=== PATIENT | male | born 1955 | race Caucasian/White ===

== ENCOUNTER → 2018-08-03 | Outpatient (CLI) | payer OTHER ==
[2018-08-03 10:06] LABS: ALANINE AMINOTRANSFERASE 36 U/L (12-78); ALBUMIN 4.1 g/dL (3.4-5.0); ANION GAP 3 mmol/L (5-15); CALCIUM 8.9 mg/dL (8.5-10.1); CHLORIDE 106 mmol/L (98-107)
[2018-08-03 10:09] LABS: ALKALINE PHOSPHATASE 45 U/L (45-117); BILIRUBIN,TOTAL 0.6 mg/dL (0.2-1.0); CHOL/HDL RATIO 2.9; CHOLESTEROL, TOTAL 146 mg/dL (140-239); CREATININE 0.96 mg/dL (0.7-1.3); HDL CHOL % 35 % (26-37); HDL CHOLESTEROL (DIRECT) 51 mg/dL (40-60); LDL CHOLESTEROL,CALCULATED 86 mg/dL (54-169); LDL/HDL RATIO 1.7 (0.5-3.0); TOTAL PROTEIN 6.6 g/dL (6.4-8.2); TRIGLYCERIDES 47 mg/dL (50-200); VLDL CHOLESTEROL 9 mg/dL (0-25)
[2018-08-03 10:18] LABS: HEMOGLOBIN A1C 5.4 % (4.2-6.3)
[2018-08-03 10:29] LABS: BASOPHILS # (AUTO) 0.01 x10^3/uL (0-0.1); BASOPHILS % (AUTO) 0 % (0-1); EOSINOPHILS # (AUTO) 0.04 x10^3/uL (0-0.4); EOSINOPHILS % (AUTO) 1 % (1-7); LYMPHOCYTES # (AUTO) 0.66 x10^3/uL (1-3.4); LYMPHOCYTES % (AUTO) 14 % (22-44); MD SCAN; MEAN CORPUSCULAR HEMOGLOBIN 30.2 pg (27.5-34.5); MEAN CORPUSCULAR HGB CONC 33.5 g/dL (33.2-36.2); MEAN CORPUSCULAR VOLUME 90.1 fL (81-97); MEAN PLATELET VOLUME 10.1 fL (7.4-10.4); MONOCYTES # (AUTO) 0.42 x10^3/uL (0.2-0.8); MONOCYTES % (AUTO) 9 % (2-9); NEUTROPHILS # (AUTO) 3.59 x10^3/uL (1.8-6.8); NEUTROPHILS % (AUTO) 76 % (42-75); PLATELET COUNT 77 x10^3/uL (130-400); RED BLOOD COUNT 5.34 x10^6/uL (4.38-5.82); RED CELL DISTRIBUTION WIDTH 12.8 % (9.4-14.8)
== END | disposition home or self-care (01) ==
LOC: LAB 09:44
PROVIDERS: ATTEND Family Medicine
DX: Z13.1 Encounter for screening for diabetes mellitus (principal); Z13.220 Encounter for screening for lipoid disorders; D69.6 Thrombocytopenia, unspecified
CPT/HCPCS: 36415; 80053; 80061; 83036; 85025

== ENCOUNTER → 2019-09-17 | Outpatient (CLI) | payer OTHER ==
[~2019-09-17] MED LIST: OMNIPAQUE 350 MG/ML, 150 ML BOTTLE ONE
== END | disposition home or self-care (01) ==
LOC: CFH 14:52
PROVIDERS: ATTEND Family Medicine
DX: M50.322 Other cervical disc degeneration at C5-C6 level (principal); R59.1 Generalized enlarged lymph nodes; R16.1 Splenomegaly, not elsewhere classified
CPT/HCPCS: 70491; 71260; 82565; Q9967

== ENCOUNTER 2019-10-10 07:35 | Outpatient (CLI) | payer OTHER | END 2019-10-10 23:59 | disposition home or self-care (01) | LOC: CVU 07:35 → PETCFH 23:59 | PROVIDERS: ATTEND Internal Medicine Hematology & Oncology | DX: C81.94 Hodgkin lymphoma, unspecified, lymph nodes of axilla and upper limb (principal); I08.8 Other rheumatic multiple valve diseases; K57.30 Diverticulosis of large intestine without perforation or abscess without bleeding; K40.90 Unilateral inguinal hernia, without obstruction or gangrene, not specified as recurrent; R16.1 Splenomegaly, not elsewhere classified | CPT/HCPCS: 78815; 93306; 93356; A9552 ==

== ENCOUNTER 2019-10-22 15:28 | Outpatient (CLI) | payer OTHER | END 2019-10-22 23:59 | disposition home or self-care (01) | LOC: CARD 15:28 | PROVIDERS: ATTEND Internal Medicine Hematology & Oncology | DX: C81.94 Hodgkin lymphoma, unspecified, lymph nodes of axilla and upper limb (principal) | CPT/HCPCS: 94010; 94726; 94729 ==

== ENCOUNTER 2019-10-25 08:10 | Day surgery (SDC) | payer OTHER ==
[~2019-10-25] VITALS: Ht 190.5 cm; Wt 81.0 kg
[2019-10-25] MEDS ORDERED: CEFAZOLIN PMX 1GM/50ML 50 ML IV STA ×2 (08:28→12:09)
[2019-10-25] MEDS ORDERED: SODIUM CHLORIDE 0.9% 1,000 ML IV SCH (08:29)
[2019-10-25 08:51] VITALS: BP 135/78
[2019-10-25] MEDS ORDERED: PLEASE ENTER ALLERGIES MC SCH (10:00)
[2019-10-25] MEDS ORDERED: CEFAZOLIN PMX 1GM/50ML 50 ML ONE (12:12)
[2019-10-25] MEDS ORDERED: CEFAZOLIN PMX 1GM/50ML 50 ML IV ONE (12:30)
[2019-10-25] MEDS ORDERED: FENTANYL PF 100 MCG/2ML ONE (13:53)
[2019-10-25] MEDS ORDERED: NALOXONE 1 MG/ML, 2ML ONE (13:54)
[2019-10-25] MEDS ORDERED: MIDAZOLAM 1 MG/ML, 5ML ONE (13:54)
[2019-10-25] MEDS ORDERED: FLUMAZENIL 0.1 MG/1 ML, 5ML ONE (13:54)
[2019-10-25] MEDS ORDERED: LIDOCAINE 1%, 20ML ONE (13:55)
== END 2019-10-25 16:45 | disposition home or self-care (01) ==
LOC: OUT 08:10
PROVIDERS: ATTEND Internal Medicine Hematology & Oncology
DX: C81.24 Mixed cellularity Hodgkin lymphoma, lymph nodes of axilla and upper limb (principal)
CPT/HCPCS: 36561; 76937; 77001; 93005; 99156; 99157; C1788; J0690; J1642; J2250; J3010; J7030; J2310

== ENCOUNTER → 2019-11-08 | Outpatient (CLI) | payer OTHER ==
[2019-11-08 08:32] LABS: ANION GAP 4 mmol/L (5-15); CALCIUM 9.4 mg/dL (8.5-10.1); CHLORIDE 107 mmol/L (98-107); CREATININE 1.08 mg/dL (0.7-1.3)
[2019-11-08 08:35] LABS: ALANINE AMINOTRANSFERASE 22 U/L (12-78); ALKALINE PHOSPHATASE 48 U/L (45-117); BILIRUBIN,TOTAL 0.4 mg/dL (0.2-1.0); TOTAL PROTEIN 6.8 g/dL (6.4-8.2)
== END | disposition home or self-care (01) ==
LOC: LAB 07:48
PROVIDERS: ATTEND Nurse Practitioner Family
DX: Z51.11 Encounter for antineoplastic chemotherapy (principal); Z51.12 Encounter for antineoplastic immunotherapy; C81.24 Mixed cellularity Hodgkin lymphoma, lymph nodes of axilla and upper limb; Z79.899 Other long term (current) drug therapy
CPT/HCPCS: 36415; 80053; 83615; 84550

== ENCOUNTER → 2019-12-26 | Outpatient (CLI) | payer OTHER | END | disposition home or self-care (01) | LOC: PETCFH 13:30 | PROVIDERS: ATTEND Internal Medicine Hematology & Oncology | DX: C81.24 Mixed cellularity Hodgkin lymphoma, lymph nodes of axilla and upper limb (principal); R59.0 Localized enlarged lymph nodes | CPT/HCPCS: 78815; A9552 ==

== ENCOUNTER 2020-01-04 07:43 | Outpatient (CLI) | payer OTHER | END 2020-01-04 23:59 | disposition home or self-care (01) | LOC: ROC 07:43 | PROVIDERS: ATTEND Radiology Radiation Oncology | DX: C81.94 Hodgkin lymphoma, unspecified, lymph nodes of axilla and upper limb (principal) | CPT/HCPCS: 99214; G0463 ==

== ENCOUNTER 2020-02-22 08:35 | Day surgery (SDC) | payer OTHER ==
[~2020-02-22] VITALS: Ht 190.5 cm; Wt 84.7 kg
[2020-02-22 09:05] VITALS: BP 125/79
[2020-02-22] MEDS ORDERED: SODIUM CHLORIDE 0.9% 1,000 ML IV SCH (09:06)
[2020-02-22] MEDS ORDERED: LIDOCAINE 1%, 20ML ONE (09:53)
[2020-02-22] MEDS ORDERED: NALOXONE 1 MG/ML, 2ML ONE (10:18)
[2020-02-22] MEDS ORDERED: MIDAZOLAM 1 MG/ML, 5ML ONE (10:18)
[2020-02-22] MEDS ORDERED: FLUMAZENIL 0.1 MG/1 ML, 5ML ONE (10:18)
[2020-02-22] MEDS ORDERED: FENTANYL PF 100 MCG/2ML ONE ×2 (10:18→11:20)
== END 2020-02-22 12:00 | disposition home or self-care (01) ==
LOC: OUT 08:35
PROVIDERS: ATTEND Internal Medicine Hematology & Oncology
DX: Z45.2 Encounter for adjustment and management of vascular access device (principal); C81.24 Mixed cellularity Hodgkin lymphoma, lymph nodes of axilla and upper limb; D69.6 Thrombocytopenia, unspecified; Z79.899 Other long term (current) drug therapy
CPT/HCPCS: 36590; 99156; 99157; J2250; J3010; J7030; 77001; J2310

== ENCOUNTER → 2020-06-05 | Outpatient (CLI) | payer OTHER | END | disposition home or self-care (01) | LOC: PETCFH 12:44 | PROVIDERS: ATTEND Internal Medicine Hematology & Oncology | DX: C81.24 Mixed cellularity Hodgkin lymphoma, lymph nodes of axilla and upper limb (principal); K40.30 Unilateral inguinal hernia, with obstruction, without gangrene, not specified as recurrent | CPT/HCPCS: 78815; A9552 ==